=== PATIENT | female | born 1990 | race African-American/Black ===

== ENCOUNTER 2017-07-27 14:25 | Emergency (ER) | payer SELFPAY ==
[~2017-07-27] VITALS: Ht 162.6 cm; Wt 70.0 kg
[2017-07-27 14:26] VITALS: BP 145/94; PULSE 92; RESP 16; TEMP 98.2; O2SAT 99
--- NOTE | 2017-07-27 17:09 | PD ---
HPI . Breast tenderness, late menstrual cycle Chief Complaint: Medical Clearance Time Seen by Provider: 16:40 Travel History International Travel<30 days: No Contact w/Intl Traveler<30days: No Traveled to known affect area: No History of Present Illness HPI 26-year-old female patient presents emergency department for evaluation of mild breast tenderness and late menstrual cycle. Patient denies any major medical history. Patient denies a fever, chills, malaise, chest pain, shortness breath , abdominal pain, vaginal discharge. Patient has never been before. Patient states she uses condoms or the coitus interruptus method for control. PFSH Past Medical History ?: Unknown LMP: 06/13/17 Social History Alcohol Use: No Tobacco Use: No Substance Use: No Allergies-Medications Reported Meds & Prescriptions Reported Meds & Active Scripts Active No Active Prescriptions or Reported Medications Review of Systems Except as stated in HPI: all other systems reviewed are Neg Physical Exam Narrative GENERAL: Well-nourished, well-developed 26-year-old female patient in no acute distress. Nontoxic appearing. SKIN: Focused skin assessment warm/dry. HEAD: Normocephalic. Atraumatic. EYES: No scleral icterus. No injection or drainage. NECK: Supple, trachea midline. No JVD or lymphadenopathy. CARDIOVASCULAR: Regular rate and rhythm without murmurs, gallops, or rubs. RESPIRATORY: Breath sounds equal bilaterally. No accessory muscle use. GENITOURINARY: No dysuria, no frequency, vaginal discharge or bleeding. GASTROINTESTINAL: Abdomen soft, non-tender, nondistended. MUSCULOSKELETAL: No cyanosis, or edema. BACK: Nontender without obvious deformity. No CVA tenderness. Data Data Last Documented VS Vital Signs Date Time Temp Pulse Resp B/P (MAP) Pulse Ox O2 Delivery O2 Flow Rate FiO2 07/27/17 14:26 98.2 92 16 145/94 (111) 99 Orders Orders Ed Urine Pregnancytest Poc (07/27/17 16:17) [facility] Medical Decision Making Medical Screen Exam Complete: Yes Emergency Medical Condition: Yes Differential Diagnosis Differential diagnoses include but not limited to , hormonal imbalance , breast tenderness Narrative Course 26 year old female presents emergency department for evaluation of a 5 day late menstrual cycle and breast tenderness. POC test ordered and is positive. Patient shocked because she was using condoms and coitus interruptus method of control. Patient is no vaginal discharge or pelvic pain. Patient discharged home with instructions to follow-up with an loan closer and started taking a vitamin daily. Diagnosis Primary Impression: Qualified Codes: Z3A.01 - Less than 8 weeks gestation of Referrals: Jonathan Cook MD Implementation Advisor Patient Instructions: First Trimester (ED), General Instructions Additional Instructions: Please return to emergency department if your symptoms return or worsen. Follow up with an loan closer. Start taking a vitamin daily. Scripts No Active Prescriptions or Reported Meds Disposition: DISCHARGE HOME Condition: Stable Naida Thakkar Cindy VILLALPANDO Jul 27, 2017 17:09
== END 2017-07-27 17:24 | disposition home or self-care (01) ==
LOC: NEPD 14:25
DX: O92.29 Other disorders of breast associated with pregnancy and the puerperium (principal); Z3A.08 8 weeks gestation of pregnancy
CPT/HCPCS: 84703; 99282

== ENCOUNTER → 2018-01-07 | Outpatient (CLI) | payer BC, MEDICAID | LOC: HPND 12:31 | PROVIDERS: ATTEND Obstetrics & Gynecology | DX: O35.8XX0 Maternal care for other (suspected) fetal abnormality and damage, not applicable or unspecified (principal) | CPT/HCPCS: 36415; 76811 ==